=== PATIENT | male | born 1945 | race Caucasian/White ===

== ENCOUNTER 2017-03-29 18:46 | Inpatient (IN) | payer OTHER ==
[~2017-03-29] VITALS: Ht 172.7 cm; Wt 77.1 kg
--- NOTE | ~2017-03-29 | EKG ---
[place] [address] [address] [facility] [place] [address] ELECTROCARDIOGRAM REPORT Name: LETI JACKSON Room #: 311-P ADM IN M.R.#: [id number] Admission: 03/29/17 Attend Phys: Jacquie Vargas Discharge: Date of : 49 Report #: [id number] THIS REPORT FOR: //name// [facility] ED Test Date: 2017-03-29 Test Time: 20:50:59 Pat Name: LETI JACKSON Department: Room: 311 Gender: M Deck Worker: [id number] : 1945 Requested By: Alysa Rabago Order Number: [id number] MD: Antonio Bacon Measurements Intervals Perry Rate: 67 P: 64 CO: 138 QRS: 23 QRSD: 101 T: 14 QT: 426 QTc: 450 Interpretive Statements Sinus rhythm Borderline low voltage, extremity leads Abnormal R-wave progression, early transition Compared to ECG 03/22/2007 00:14:49 No significant changes Electronically Signed On 03-31-2017 8:34:51 CDT by Antonio Bacon [email or web address] <ELECTRONICALLY SIGNED> By: Antonio Bacon MD, [facility] 03/31/17 08 49 49 Antonio Bacon MD, [facility] /EPI
--- NOTE | ~2017-03-29 | 2DMMODE ---
[facility] [address] [place] [address] 2 D/M-MODE ECHOCARDIOGRAM Name: LETI JACKSON Room #: 311-P [facility] IN ..#: [id number] Admission: 03/29/17 Attend Phys: Jacquie Woods Discharge: Date of : 49 Date of Service: 03/31/17 0934 Report #: [id number] THIS REPORT FOR: //name// APPROVED REPORT Study performed: 03/31/2017 07:26:47 EXAM: Comprehensive 2D, Doppler, and color-flow Echocardiogram Patient Location: Echo lab Room #: 311 Other Information Study Quality: Adequate Indications CVA/TIA Diabetes Hypertension/HDD Echo Enhancing Agent Indication: Rule out Shunt Agent(s) / Amount(s) Used: Agitated Saline 6 cc 2D Dimensions RVDd: 29.87 mm LVEF(%): 58.66 (>50%) IVSd: 14.83 (7-11mm) LVOT Diam: 21.28 (18-24mm) LVDd: 40.90 mm PWd: 15.22 (7-11mm) Ascending Ao: 31.66 (22-36mm) LVDs: 28.36 (25-40mm) Aortic Root: 28.77 mm IVC: 22.00 mm Andujar's LVEF: 58.66 % Volumes Left Atrial Volume (Systole) Single Plane 4CH: 48.64 mL Single Plane 2CH: 32.77 mL LA ESV Index: 22.00 mL/m2 Aortic Valve AoV Peak Lonny.: 1.56 m/s AO Peak Gr.: 9.69 mmHg LVOT Max P.06 mmHg LVOT Max V: 1.33 m/s NARESH Vmax: 3.03 cm2 Mitral Valve [facility] [address] [place] [address] 2 D/M-MODE ECHOCARDIOGRAM Name: LETI JACKSON Room #: 311-P [facility] IN ..#: [id number] Admission: 03/29/17 Attend Phys: Jacquie Woods Discharge: Date of : 49 Date of Service: 03/31/17 0934 Report #: [id number] E/A Ratio: 1.1 MV Decel. Time: 233.48 ms MV E Max Lonny.: 1.25 m/s MV A Lonny.: 1.10 m/s MV PHT: 67.71 ms IVRT: 86.51 ms Pulmonary Valve PV Peak Lonny.: 1.06 m/s PV Peak Gr.: 4.52 mmHg Pulmonary Vein P Vein S: 0.95 m/s P Vein A: 0.28 m/s P Vein D: 0.55 m/s P Vein A Dur.: 86.5 msec P Vein S/D Ratio: 1.73 Tricuspid Valve TR Peak Lonny.: 3.41 m/s RAP Estimate: 10.00 mmHg TR Peak Gr.: 46.39 mmHg Left Ventricle The left ventricle is normal size. Moderate concentric left ventricular hypertrophy. The left ventricular systolic function is normal. The left ventricular ejection fraction is within the normal range. LVEF is 60-65%. Moderate diastolic dysfunction is present (pseudonormal filling). Right Ventricle The right ventricle is normal size. The right ventricular systolic function is normal. Atria The left atrium size is normal. Injection of bubbles documented no interatrial shunt. The right atrium size is normal. Aortic Valve The aortic valve is normal in structure. No aortic regurgitation is present. There is no aortic valvular stenosis. Mitral Valve The mitral valve is normal in structure. Trace mitral regurgitation. No evidence of mitral valve stenosis. Tricuspid Valve The tricuspid valve is normal in structure. Mild tricuspid regurgitation. [address] [address] 2 D/M-MODE ECHOCARDIOGRAM Name: MANUELLETI Jonathon Room #: 311-P [facility] IN .R.#: [id number] Admission: 03/29/17 Attend Phys: Jacquie Woods Discharge: Date of : 49 Date of Service: 03/31/17 0934 Report #: [id number] Pulmonic Valve The pulmonary valve is normal in structure. There is no pulmonic valvular regurgitation. Great Vessels The aortic root is normal in size. IVC is dilated and collapses >50% with inspiration. Pericardium There is no pericardial effusion. <Conclusion> The left ventricle is normal size. LVEF is 60-65%. The aortic valve is normal in structure. The mitral valve is normal in structure. Trace mitral regurgitation. The tricuspid valve is normal in structure. Mild tricuspid regurgitation. The pulmonary valve is normal in structure. <ELECTRONICALLY SIGNED> By: Primitivo Brandt MD 03/31/1734 3 Primitivo Brandt MD /INF
[~2017-03-29 18:46] MED LIST: AMARYL4 MG; AMBIEN 10 MG TA10 MG PO; ARICEPT 5 MG TAB5 MG; ASPIR 8181 MG; BENICAR HCT 401 EAC1 PO; CARVEDILOL6.25 MG PO; CELEXA40 MG PO; COQ-10100 MG PO; CRESTOR10 MG PO; GLUCOPHAGE1000 MG PO; GLUCOSAMINE-CH1 EA40 PO; MULTIVITAMINS1 EAC7 PO; NABUMETONE 750750 M1 PO; NAMENDA 5 MG TAB5 M1; NIASPAN 500 MG500 M1 PO; NORVASC2.5 MG; REQUIP 1 MG TABL1 M1 PO; VIAGRA100 MG PO; VITAMIN C + RO500 MG PO
[2017-03-29 18:48] VITALS: BP 154/91
[2017-03-29 19:39] LABS: ABSOLUTE NEUTROPHILS 8.7 thou/uL (1.4-8.2); BASOPHILS 0.5 % (0.0-2.0); EOSINOPHILS 1.1 % (0.0-3.0); HEMATOCRIT 36.9 % (42.0-52.0); HEMOGLOBIN 12.2 gm/dL (14.0-18.0); LYMPHOCYTES 13.1 % (24.0-44.0); MCH 29.9 pg (26.0-34.0); MCV 90.6 fL (80.0-100.0); MONOCYTES 10.2 % (1.0-8.0); PLATELET COUNT 145 thou/uL (150-400); POLYS 75.1 % (36.0-66.0); RBC 4.07 mil/uL (4.50-6.00); RDW 14.9 % (10.5-14.5); WBC 11.6 thou/uL (4.0-11.0)
[2017-03-29 19:42] LABS: MANUAL DIFF NO
[2017-03-29 20:14] LABS: POTASSIUM 3.2 mmol/L (3.5-5.1)
[2017-03-29 20:19] LABS: ALBUMIN 3.6 g/dL (3.4-5.0); TOTAL PROTEIN 7.2 g/dL (6.4-8.2)
[2017-03-29 21:12] LABS: URINE BILIRUBIN NEGATIVE (Negative); URINE BLOOD NEGATIVE (Negative); URINE COLOR YELLOW; URINE GLUCOSE-RANDOM* NEGATIVE (Negative); URINE KETONES NEGATIVE (Negative); URINE LEUKOCYTES-REFLEX NEGATIVE (Negative); URINE PROTEIN (DIPSTICK) NEGATIVE (Negative); URINE SPECIFIC GRAVITY 1.025 (1.003-1.035); URINE UROBILINOGEN 0.2 E.U./dl (0.2-1.0)
[2017-03-29 22:40] VITALS: BP 150/80
[2017-03-29 23:05] VITALS: BP 150/81
[2017-03-30 04:00] VITALS: BP 143/68
[2017-03-30 05:50] LABS: HEMATOCRIT 34.4 % (42.0-52.0); HEMOGLOBIN 11.6 gm/dL (14.0-18.0); MCH 30.1 pg (26.0-34.0); MCHC 33.8 g/dL (28.0-37.0); RBC 3.87 mil/uL (4.50-6.00); RDW 14.7 % (10.5-14.5); WBC 9.4 thou/uL (4.0-11.0)
[2017-03-30 06:01] LABS: CALCIUM 8.3 mg/dL (8.5-10.1); CREATININE 1.9 mg/dL (0.7-1.3); POTASSIUM 4.2 mmol/L (3.5-5.1)
[2017-03-30 09:15] VITALS: BP 144/79
[2017-03-30 09:22] LABS: CHOLESTEROL 161 mg/dL (<200); HDL CHOLESTEROL 56 mg/dL (>40); LDL CHOLESTEROL 79 mg/dL (<100); TC:HDL 2.9 Ratio (Not establshd); TRIGLYCERIDE 133 mg/dL (<150); VLDL 27 mg/dL (<40)
[2017-03-30 09:53] LABS: TSH 0.848 uIU/mL (0.358-3.740)
[2017-03-30] MEDS ORDERED: CRESTOR10 MG PO (11:43)
[2017-03-30] MEDS ORDERED: ZOLOFT50 MG PO (11:44)
[2017-03-30] MEDS ORDERED: REQUIP 1 MG TABL1 M1 PO (11:44)
[2017-03-30] MEDS ORDERED: TOPROL XL100 MG PO (11:46)
[2017-03-30] MEDS ORDERED: PIOGLITAZONE15 MG (11:46)
[2017-03-30] MEDS ORDERED: AMARYL4 MG PO (11:47)
[2017-03-30] MEDS ORDERED: FLOMAX0.4 MG PO (11:48)
[2017-03-30] MEDS ORDERED: ARICEPT 5 MG TAB5 MG PO (11:48)
[2017-03-30] MEDS ORDERED: COZAAR 25 MG TA25 M1 PO (11:48)
[2017-03-30] MEDS ORDERED: NAMENDA 10 MG T10 MG PO (11:50)
[2017-03-30 14:09] LABS: FREE T4 1.17 ng/dL (0.82-1.77)
[2017-03-30 19:50] VITALS: BP 122/73
[2017-03-31 04:18] VITALS: BP 142/61
[2017-03-31 07:39] VITALS: BP 154/90
[2017-03-31 15:37] VITALS: BP 146/77
[2017-03-31 20:30] VITALS: BP 150/75
[2017-04-01 04:30] VITALS: BP 153/81
[2017-04-01 05:12] LABS: GLYCOHEMOGLOBIN (HGB A1C) 7.6 % (4.8-5.6)
[2017-04-01 07:01] VITALS: BP 164/86
[2017-04-01 13:04] VITALS: BP 164/86
[2017-04-01 13:13] VITALS: BP 164/86
[2017-04-03 00:10] LABS: ALPHA TOCOPHEROL 12.1 mg/L (5.3-17.5)
== END 2017-04-01 14:15 | disposition home health service (06) | DRG 604 ==
LOC: ER 18:46 → EROBS 21:27 → 3N 21:27
PROVIDERS: Nurse Practitioner Family; Psychiatry & Neurology Neurology
DX: S00.03XA Contusion of scalp, initial encounter (principal); G93.40 Encephalopathy, unspecified; N17.9 Acute kidney failure, unspecified; F07.81 Postconcussional syndrome; G25.81 Restless legs syndrome; E87.6 Hypokalemia; I25.10 Atherosclerotic heart disease of native coronary artery without angina pectoris; E86.0 Dehydration; F03.90 Unspecified dementia, unspecified severity, without behavioral disturbance, psychotic disturbance, mood disturbance, and anxiety; I10 Essential (primary) hypertension; M48.06 Spinal stenosis, lumbar region; E11.9 Type 2 diabetes mellitus without complications; E78.5 Hyperlipidemia, unspecified; S00.11XA Contusion of right eyelid and periocular area, initial encounter; W18.30XA Fall on same level, unspecified, initial encounter; Y93.89 Activity, other specified; Y92.89 Other specified places as the place of occurrence of the external cause; Y99.8 Other external cause status; Z79.82 Long term (current) use of aspirin; Z79.899 Other long term (current) drug therapy; Z98.41 Cataract extraction status, right eye; Z90.49 Acquired absence of other specified parts of digestive tract; Z88.0 Allergy status to penicillin
CPT/HCPCS: 10096